=== PATIENT | male | born 1980 | race Caucasian/White ===

== ENCOUNTER 2024-09-07 01:39 | Emergency (ER) | payer OTHER ==
[~2024-09-07] VITALS: Ht 170.2 cm; Wt 68.0 kg
[2024-09-07 01:48] VITALS: TEMP 98.1
[2024-09-07] MEDS ORDERED: MECLIZINE HCL 25 MG TABLET ONE (01:58)
[2024-09-07] MEDS: IV NS 0.9% 500 ML BAG IV ONE (02:05)
[2024-09-07] MEDS: MECLIZINE HCL 12.5 MG TABLET PO ONE (02:05)
[2024-09-07 02:08] LABS: BASOPHILS % (AUTO) 0.3 % (0.0-2.0); EOSINOPHILS % (AUTO) 0.2 % (0.0-6.0); HEMATOCRIT 47 % (39-51); HEMOGLOBIN 15.8 g/dL (13.5-17.5); LYMPHOCYTES # (AUTO) 2.7 K/uL (0.8-4.8); LYMPHOCYTES % (AUTO) 24.7 % (20.0-44.0); MEAN CORPUSCULAR HEMOGLOBIN 29 PG (26.0-33.0); MEAN CORPUSCULAR HGB CONC 34 g/dl (31.0-36.0); MEAN CORPUSCULAR VOLUME 85 fL (80-96); MONOCYTES # (AUTO) 0.6 K/uL (0.1-1.30); NEUTROPHILS # (AUTO) 7.7 K/uL (1.8-8.9); NEUTROPHILS % (AUTO) 69.8 % (43.0-81.0); PLATELET COUNT (AUTO) 256 K/uL (150-450); RED BLOOD CELL COUNT(AUTO) 5.46 MIL/uL (4.5-6.0); RED CELL DISTRIBUTION WIDTH 13.4 % (11.5-15.0)
[2024-09-07 02:25] LABS: BILIRUBIN,DIRECT 0.2 mg/dL (0.0-0.2); BILIRUBIN,TOTAL 1.3 mg/dL (0.2-1.0); CALCIUM, SERUM 9.5 mg/dL (8.5-10.1); CREATININE 1.1 mg/dL (0.6-1.3); POTASSIUM 3.5 mmol/L (3.5-5.1); TOTAL PROTEIN, SERUM 8.7 g/dL (6.4-8.2)
[2024-09-07 02:36] LABS: INR 1.03 (0.91-1.10); PARTIAL THROMBOPLASTIN TIME 26.9 SEC (24.3-34.3); PROTHROMBIN TIME 10.9 SECS (9.2-11.1)
[2024-09-07 03:19] VITALS: BP 149/95; O2SAT 98
== END 2024-09-07 03:19 | disposition home or self-care (01) ==
LOC: ER 01:48
DX: R42 Dizziness and giddiness (principal); R20.2 Paresthesia of skin; R07.9 Chest pain, unspecified; R51.9 Headache, unspecified
CPT/HCPCS: 99284; 70450; 93005; 85025; 80048; 80076; 36415; 85730; 82962; J8597; J7040